=== PATIENT | male | born 1985 | race Two or more races ===

== ENCOUNTER 2018-09-16 17:04 | Emergency (ER) | payer MEDICAID ==
[~2018-09-16] VITALS: Ht 172.7 cm; Wt 72.6 kg
[2018-09-16] MEDS ORDERED: QUET25TA PO (17:15)
[2018-09-16 23:05] VITALS: BP 104/60
== END 2018-09-17 00:35 | disposition left against medical advice (07) ==
LOC: ER 17:04
DX: R51 Headache (principal); R11.2 Nausea with vomiting, unspecified; G35 Multiple sclerosis
CPT/HCPCS: 99283